=== PATIENT | male | born 1990 | race African-American/Black ===

== ENCOUNTER 2017-09-09 23:17 | Emergency (ER) | payer SELFPAY | END 2017-09-10 01:00 | LOC: ERS 23:17 | DX: M79.89 Other specified soft tissue disorders (principal); I10 Essential (primary) hypertension; F17.210 Nicotine dependence, cigarettes, uncomplicated | CPT/HCPCS: 99406 ==

== ENCOUNTER 2017-11-15 02:23 | Emergency (ER) | payer SELFPAY ==
[2017-11-15] MEDS ORDERED: Haloperidol Lactate 5 MG/ML VIAL ONE (02:27)
[2017-11-15] MEDS ORDERED: diphenhydrAMINE 50 MG/ML VIAL ONE (02:27)
[2017-11-15] MEDS ORDERED: Lorazepam 2 MG/ML VIAL ONE (02:27)
[2017-11-15 03:31] LABS: #Basophils 0.1 thou/uL (0.0-0.2); #Lymphocytes 1.6 thou/uL (1.20-3.40); #Monocytes 0.6 thou/uL (0.11-0.59); #Neutrophils 5.1 thou/uL (1.40-6.50); %Basophils 1.2 % (0.0-1.0); %Eosinophils 0.4 % (0.0-10.0); %Lymphocytes 21.5 % (21.0-51.0); %Monocytes 8.5 % (0.0-10.0); %Neutrophils 68.3 % (42.0-75.0); Hemoglobin 14.4 g/dL (14.0-18.0); Mean Corpuscular HGB CONC 33.6 g/dL (32.0-36.0); Mean Corpuscular Volume 89.3 fl (80.0-94.0); Mean Platelet Volume 7.9 fL (7.4-10.4); Platelet Count 172 thou/uL (130-400); RBC Distribution Width 14.7 % (11.5-14.5); Red Blood Cell (RBC) Count 4.79 mill/uL (4.70-6.10); White Blood Cell (WBC) Count 7.5 thou/uL (4.8-10.8)
[2017-11-15 03:52] LABS: ALT (SGPT) 12 U/L (8-55); AST (SGOT) 26 U/L (5-34); Acetaminophen Less than 6.0 mcg/mL (10.0-30.0); Albumin 4.3 g/dL (3.5-5.0); Alcohol Less than 10 mg/dL (Less than 10); Alkaline Phosphatase 81 U/L (40-150); Anion Gap 15 mmol/L (10-20); BUN (Urea Nitrogen) 7 mg/dL (8.9-20.6); CK (CPK) 384 U/L (30-200); Calc. Creatinine Clearance 0 mL/min (70-130); Carbon Dioxide 24 mmol/L (22-29); Chloride 103 mmol/L (98-107); Estimated GFR-MDRD Greater than 90; Globulin 3.8 g/dL (2.4-3.5); Glucose 103 mg/dL (70-105); Potassium 3.7 mmol/L (3.5-5.1); Protein, Total 8.1 g/dL (6.0-8.3); Salicylate Less than 8.0 mg/dL (15.0-30.0); Sodium 138 mmol/L (136-145)
[2017-11-15 04:50] LABS: Bilirubin Negative (Negative); Blood, Urine Negative (Negative); Clarity CLEAR (Clear); Glucose, Urine (Dipstick) Negative (Negative); Leukocyte Trace (Negative); Nitrite Negative (Negative); Protein, Urine (Dipstick) Negative (Neg-Trace); Specific Gravity, Urine 1.005 (1.002-1.036); Urobilinogen 0.2 mg/dL (0.2-1.0)
[2017-11-15 04:52] LABS: Bacteria/HPF None Seen HPF (None Seen); Hyaline Casts/LPF 0-3 HYALINE CAST LPF (0-3 Hyaline); RBC/HPF None Seen HPF (0-3); Squamous Epithelial None Seen HPF (0-3); WBC/HPF 0-3 HPF (0-3)
[2017-11-15 04:59] LABS: Amphetamine Detected (NotDetected); Barbiturates Screen Not Detected (NotDetected); Benzodiazepine Screen Not Detected (NotDetected); Cocaine Metabolite Screen Not Detected (NotDetected); Medtox Control Line Valid? VALID (VALID); Medtox Reader # READER 4; Methadone Not Detected (NotDetected); Methamphetamine Detected (NotDetected); Opiate Screen Not Detected (NotDetected); Oxycodone Screen Not Detected (NotDetected); Phencyclidine (PCP) Not Detected (NotDetected); THC/Cannabinoid Screen Detected (NotDetected); Tricyclic Screen Not Detected (NotDetected)
== END 2017-11-15 15:55 | disposition home or self-care (01) ==
LOC: ERS 02:23
DX: F19.10 Other psychoactive substance abuse, uncomplicated (principal); F17.210 Nicotine dependence, cigarettes, uncomplicated; I10 Essential (primary) hypertension; Z71.6 Tobacco abuse counseling
CPT/HCPCS: 36415; 80053; 80306; 80307; 81003; 81015; 82550; 84443; 85025; 96372; 99406; J1200; J1630; J2060

== ENCOUNTER 2017-11-23 07:08 | Emergency (ER) | payer SELFPAY ==
[2017-11-23 08:13] LABS: ALT (SGPT) 18 U/L (8-55); AST (SGOT) 27 U/L (5-34); Acetaminophen Less than 6.0 mcg/mL (10.0-30.0); Albumin 4.5 g/dL (3.5-5.0); Alcohol Less than 10 mg/dL (Less than 10); Alkaline Phosphatase 84 U/L (40-150); Anion Gap 16 mmol/L (10-20); BUN (Urea Nitrogen) 9 mg/dL (8.9-20.6); Bilirubin, Total 0.9 mg/dL (0.2-1.2); Calc. Creatinine Clearance 0 mL/min (70-130); Calcium 10.1 mg/dL (7.8-10.44); Carbon Dioxide 23 mmol/L (22-29); Chloride 101 mmol/L (98-107); Estimated GFR-MDRD Greater than 90; Globulin 4.2 g/dL (2.4-3.5); Glucose 95 mg/dL (70-105); Protein, Total 8.7 g/dL (6.0-8.3); Salicylate Less than 8.0 mg/dL (15.0-30.0); Sodium 136 mmol/L (136-145)
[2017-11-23 08:15] LABS: #Lymphocytes 1.5 thou/uL (1.20-3.40); #Monocytes 0.5 thou/uL (0.11-0.59); #Neutrophils 3.8 thou/uL (1.40-6.50); %Basophils 0.5 % (0.0-1.0); %Eosinophils 0.3 % (0.0-10.0); %Neutrophils 65.2 % (42.0-75.0); Hemoglobin 15.9 g/dL (14.0-18.0); Mean Corpuscular HGB CONC 32.6 g/dL (32.0-36.0); Mean Corpuscular Hemoglobin 29.5 pg (27.0-31.0); Mean Corpuscular Volume 90.3 fl (80.0-94.0); Mean Platelet Volume 8.2 fL (7.4-10.4); Platelet Count 162 thou/uL (130-400); RBC Distribution Width 13.9 % (11.5-14.5); Red Blood Cell (RBC) Count 5.38 mill/uL (4.70-6.10); White Blood Cell (WBC) Count 5.9 thou/uL (4.8-10.8)
[2017-11-23 08:16] LABS: PLT Morphology Comment Appears Adequate; RBC Morphology Normal
[2017-11-23] MEDS ORDERED: Cephalexin 250 MG CAP ONE (10:16)
== END 2017-11-23 08:03 | disposition left against medical advice (07) ==
LOC: ERS 07:08
DX: R44.0 Auditory hallucinations (principal); I10 Essential (primary) hypertension; F17.210 Nicotine dependence, cigarettes, uncomplicated; Z79.899 Other long term (current) drug therapy
CPT/HCPCS: 36415; 80053; 80307; 85025; 99285

== ENCOUNTER 2017-11-23 08:13 | Emergency (ER) | payer SELFPAY ==
[2017-11-23 09:18] LABS: Bilirubin Small (Negative); Blood, Urine Negative (Negative); Clarity CLEAR (Clear); Glucose, Urine (Dipstick) Negative (Negative); Leukocyte Moderate (Negative); Nitrite Negative (Negative); Protein, Urine (Dipstick) Trace mg/dL (Neg-Trace); Specific Gravity, Urine 1.024 (1.002-1.036)
[2017-11-23 09:21] LABS: Bacteria/HPF None Seen HPF (None Seen); Pathc Cast-AUWi Flag 0.43 (0-2.49); RBC/HPF 0-3 HPF (0-3); Squamous Epithelial 0-3 HPF (0-3)
[2017-11-23 09:33] LABS: Amphetamine Detected (NotDetected); Barbiturates Screen Not Detected (NotDetected); Benzodiazepine Screen Not Detected (NotDetected); Cocaine Metabolite Screen Detected (NotDetected); Medtox Control Line Valid? VALID (VALID); Medtox Reader # READER 1; Methadone Not Detected (NotDetected); Methamphetamine Detected (NotDetected); Opiate Screen Not Detected (NotDetected); Oxycodone Screen Not Detected (NotDetected); Phencyclidine (PCP) Not Detected (NotDetected); THC/Cannabinoid Screen Detected (NotDetected); Tricyclic Screen Not Detected (NotDetected)
[2017-11-23 09:49] LABS: Renal Epithelial None Seen HPF (0-3); Sperm/HPF Rare HPF (None Seen); Transitional Epithelial NONE SEEN HPF (0-3)
[2017-11-23 09:50] LABS: Hyaline Casts/LPF 0-3 HYALINE CAST LPF (0-3 Hyaline)
[2017-11-23] MEDS ORDERED: Lorazepam 2 MG/ML VIAL ONE (15:29)
[2017-11-24] MEDS ORDERED: risperiDONE 3 MG TAB PO SCH (09:00)
[2017-11-24] MEDS ORDERED: traZODone HCl 50 MG TAB PO SCH (09:00)
[2017-11-24] MEDS ORDERED: Ziprasidone 20 MG VIAL ONE (16:13)
[2017-11-24] MEDS ORDERED: Water For Injection,Sterile 20 ML ONE (16:14)
== END 2017-11-24 17:25 | disposition home or self-care (01) ==
LOC: ERS 08:13
DX: F19.10 Other psychoactive substance abuse, uncomplicated (principal); F29 Unspecified psychosis not due to a substance or known physiological condition; I10 Essential (primary) hypertension; F17.210 Nicotine dependence, cigarettes, uncomplicated; Z79.899 Other long term (current) drug therapy
CPT/HCPCS: 80306; 81003; 81015; 87086; 93005; 96372; 99406; J2060; J3486

== ENCOUNTER 2017-12-20 16:29 | Emergency (ER) | payer SELFPAY ==
[2017-12-20 17:20] LABS: #Basophils 0.1 thou/uL (0.0-0.2); #Lymphocytes 1.9 thou/uL (1.20-3.40); #Monocytes 0.7 thou/uL (0.11-0.59); #Neutrophils 6.6 thou/uL (1.40-6.50); %Basophils 1.1 % (0.0-1.0); %Eosinophils 0.4 % (0.0-10.0); %Lymphocytes 20.4 % (21.0-51.0); %Monocytes 7.4 % (0.0-10.0); %Neutrophils 70.7 % (42.0-75.0); Hemoglobin 15.2 g/dL (14.0-18.0); Mean Corpuscular HGB CONC 33.1 g/dL (32.0-36.0); Mean Corpuscular Hemoglobin 30.2 pg (27.0-31.0); Mean Corpuscular Volume 91.2 fl (80.0-94.0); Mean Platelet Volume 7.8 fL (7.4-10.4); Platelet Count 177 thou/uL (130-400); RBC Distribution Width 13.3 % (11.5-14.5); Red Blood Cell (RBC) Count 5.03 mill/uL (4.70-6.10); White Blood Cell (WBC) Count 9.3 thou/uL (4.8-10.8)
[2017-12-20 17:26] LABS: Bilirubin Negative (Negative); Blood, Urine Negative (Negative); Clarity CLEAR (Clear); Glucose, Urine (Dipstick) Negative (Negative); Leukocyte Moderate (Negative); Nitrite Negative (Negative); Protein, Urine (Dipstick) Negative (Neg-Trace); Specific Gravity, Urine 1.011 (1.002-1.036); Urobilinogen 0.2 mg/dL (0.2-1.0)
[2017-12-20 17:29] LABS: Bacteria/HPF None Seen HPF (None Seen); Hyaline Casts/LPF 0-3 HYALINE CAST LPF (0-3 Hyaline); RBC/HPF None Seen HPF (0-3); Squamous Epithelial 0-3 HPF (0-3)
[2017-12-20 17:35] LABS: Acetaminophen Less than 6.0 mcg/mL (10.0-30.0); Alcohol Less than 10 mg/dL (Less than 10); Salicylate Less than 8.0 mg/dL (15.0-30.0)
[2017-12-20 17:35] LABS: Amphetamine Detected (NotDetected); Barbiturates Screen Not Detected (NotDetected); Benzodiazepine Screen Not Detected (NotDetected); Cocaine Metabolite Screen Not Detected (NotDetected); Medtox Control Line Valid? VALID (VALID); Medtox Reader # READER 1; Methadone Not Detected (NotDetected); Methamphetamine Detected (NotDetected); Opiate Screen Not Detected (NotDetected); Oxycodone Screen Not Detected (NotDetected); Phencyclidine (PCP) Not Detected (NotDetected); THC/Cannabinoid Screen Detected (NotDetected); Tricyclic Screen Not Detected (NotDetected)
[2017-12-20 17:37] LABS: ALT (SGPT) 15 U/L (8-55); AST (SGOT) 24 U/L (5-34); Albumin 4.5 g/dL (3.5-5.0); Alkaline Phosphatase 90 U/L (40-150); Anion Gap 16 mmol/L (10-20); BUN (Urea Nitrogen) 13 mg/dL (8.9-20.6); Bilirubin, Total 0.8 mg/dL (0.2-1.2); CK (CPK) 200 U/L (30-200); Calc. Creatinine Clearance 0 mL/min (70-130); Calcium 9.9 mg/dL (7.8-10.44); Carbon Dioxide 21 mmol/L (22-29); Chloride 104 mmol/L (98-107); Estimated GFR-MDRD Greater than 90; Glucose 77 mg/dL (70-105); Potassium 4.2 mmol/L (3.5-5.1); Protein, Total 8.5 g/dL (6.0-8.3); Sodium 137 mmol/L (136-145)
[2017-12-20] MEDS ORDERED: traZODone HCl 50 MG TAB ONE (18:10)
[2017-12-20] MEDS ORDERED: Ibuprofen 800 MG TAB ONE (18:10)
[2017-12-20] MEDS ORDERED: risperiDONE 1 MG TAB ONE (18:10)
== END 2017-12-20 21:03 | disposition home or self-care (01) ==
LOC: ERS 16:29
DX: F29 Unspecified psychosis not due to a substance or known physiological condition (principal); Z91.14 Patient's other noncompliance with medication regimen; Z71.6 Tobacco abuse counseling; I10 Essential (primary) hypertension; F31.9 Bipolar disorder, unspecified; F17.210 Nicotine dependence, cigarettes, uncomplicated; Z79.899 Other long term (current) drug therapy
CPT/HCPCS: 36415; 80053; 80306; 80307; 81003; 81015; 82550; 84443; 85025; 99406

== ENCOUNTER 2018-01-24 16:39 | Emergency (ER) | payer SELFPAY ==
[2018-01-24] MEDS ORDERED: Ondansetron ODT 4 MG TAB ONE (17:03)
[2018-01-24 17:10] LABS: #Eosinphils 0.1 thou/uL (0.0-0.7); #Lymphocytes 1.6 thou/uL (1.20-3.40); #Monocytes 0.6 thou/uL (0.11-0.59); #Neutrophils 6.1 thou/uL (1.40-6.50); %Basophils 0.6 % (0.0-1.0); %Eosinophils 0.6 % (0.0-10.0); %Lymphocytes 18.8 % (21.0-51.0); %Monocytes 6.7 % (0.0-10.0); %Neutrophils 73.3 % (42.0-75.0); Hemoglobin 14.3 g/dL (14.0-18.0); Mean Corpuscular HGB CONC 33.4 g/dL (32.0-36.0); Mean Corpuscular Volume 89.8 fl (80.0-94.0); Mean Platelet Volume 7.6 fL (7.4-10.4); Platelet Count 171 thou/uL (130-400); Red Blood Cell (RBC) Count 4.75 mill/uL (4.70-6.10); White Blood Cell (WBC) Count 8.3 thou/uL (4.8-10.8)
[2018-01-24] MEDS ORDERED: Morphine 10 MG/ML VIAL ONE (17:14)
[2018-01-24 17:33] LABS: ALT (SGPT) 18 U/L (8-55); AST (SGOT) 33 U/L (5-34); Albumin 4.5 g/dL (3.5-5.0); Alkaline Phosphatase 100 U/L (40-150); Anion Gap 14 mmol/L (10-20); BUN (Urea Nitrogen) 8 mg/dL (8.9-20.6); Calc. Creatinine Clearance 0 mL/min (70-130); Calcium 10.4 mg/dL (7.8-10.44); Carbon Dioxide 24 mmol/L (22-29); Chloride 100 mmol/L (98-107); Estimated GFR-MDRD Greater than 90; Globulin 4.2 g/dL (2.4-3.5); Glucose 80 mg/dL (70-105); Protein, Total 8.7 g/dL (6.0-8.3); Sodium 134 mmol/L (136-145)
--- NOTE | 2018-01-24 17:57 | ULT ---
SCROTAL ULTRASOUND INCLUDING COLOR AND SPECTRAL DOPPLER IMAGIN01/24/18 HISTORY: 27-year-old male with left testicular pain. Right testis measures 4.3 x 2.6 x 2.0 cm. Left testis measures 3.5 x 2.6 x 2.1 cm. The left epididymi s is significantly larger than the right with some heterogeneous hypervascular flow. Right epididymal cyst is 0.7 x 0.9 cm. No intratesticular mass or evidence for testicular torsion. IMPRESSION: Enlarged left epididymis with some heterogeneous increased flow raising concern for epididymitis. Rig ht epididymal head cyst. No intratesticular mass or testicular torsion. POS: [facility]
[2018-01-24 18:08] LABS: Bilirubin Negative (Negative); Blood, Urine Negative (Negative); Clarity CLEAR (Clear); Glucose, Urine (Dipstick) Negative (Negative); Leukocyte Small (Negative); Nitrite Negative (Negative); Protein, Urine (Dipstick) Negative (Neg-Trace); Specific Gravity, Urine 1.009 (1.002-1.036); Urobilinogen 0.2 mg/dL (0.2-1.0)
[2018-01-24 18:10] LABS: Bacteria/HPF None Seen HPF (None Seen); Hyaline Casts/LPF 0-3 HYALINE CAST LPF (0-3 Hyaline); RBC/HPF None Seen HPF (0-3); Squamous Epithelial None Seen HPF (0-3)
[2018-01-24] MEDS ORDERED: cefTRIAXone\\ROCEPHIN 250 MG VIAL ONE (18:33)
[2018-01-24] MEDS ORDERED: Lidocaine 1% PF 5 ML VIAL ONE (18:33)
== END 2018-01-24 19:05 | disposition home or self-care (01) ==
LOC: ERS 16:39
DX: N45.1 Epididymitis (principal); F31.9 Bipolar disorder, unspecified; F17.210 Nicotine dependence, cigarettes, uncomplicated; I10 Essential (primary) hypertension
CPT/HCPCS: 76870; 80053; 81003; 81015; 83605; 85025; 87086; 93976; 96361; 96372; 96374; J0696; J2001; J2270; Q0162

== ENCOUNTER 2018-01-31 19:04 | Emergency (ER) | payer SELFPAY ==
[2018-01-31 20:48] LABS: #Basophils 0.1 thou/uL (0.0-0.2); #Eosinphils 0.1 thou/uL (0.0-0.7); #Lymphocytes 1.6 thou/uL (1.20-3.40); #Monocytes 0.6 thou/uL (0.11-0.59); #Neutrophils 3.5 thou/uL (1.40-6.50); %Basophils 1.1 % (0.0-1.0); %Eosinophils 1.2 % (0.0-10.0); %Lymphocytes 28.2 % (21.0-51.0); %Monocytes 9.5 % (0.0-10.0); Hemoglobin 14.9 g/dL (14.0-18.0); Mean Corpuscular HGB CONC 34.3 g/dL (32.0-36.0); Mean Corpuscular Hemoglobin 30.4 pg (27.0-31.0); Mean Corpuscular Volume 88.5 fl (80.0-94.0); Mean Platelet Volume 7.4 fL (7.4-10.4); Platelet Count 181 thou/uL (130-400); RBC Distribution Width 13.8 % (11.5-14.5); Red Blood Cell (RBC) Count 4.91 mill/uL (4.70-6.10); White Blood Cell (WBC) Count 5.8 thou/uL (4.8-10.8)
[2018-01-31 21:08] LABS: Bilirubin Negative (Negative); Blood, Urine Negative (Negative); Clarity CLEAR (Clear); Glucose, Urine (Dipstick) Negative (Negative); Leukocyte Small (Negative); Nitrite Negative (Negative); Protein, Urine (Dipstick) 100 mg/dL (Neg-Trace); Specific Gravity, Urine 1.028 (1.002-1.036); Urobilinogen 0.2 mg/dL (0.2-1.0)
[2018-01-31 21:10] LABS: Bacteria/HPF None Seen HPF (None Seen); Hyaline Casts/LPF 0-3 HYALINE CAST LPF (0-3 Hyaline); Squamous Epithelial 0-3 HPF (0-3); WBC/HPF 21-50 HPF (0-3)
[2018-01-31 21:10] LABS: Acetaminophen Less than 6.0 mcg/mL (10.0-30.0); Alcohol Less than 10 mg/dL (Less than 10); CK (CPK) 1116 U/L (30-200); Salicylate Less than 8.0 mg/dL (15.0-30.0)
[2018-01-31 21:11] LABS: ALT (SGPT) 14 U/L (8-55); AST (SGOT) 32 U/L (5-34); Albumin 4.2 g/dL (3.5-5.0); Alkaline Phosphatase 98 U/L (40-150); Anion Gap 15 mmol/L (10-20); BUN (Urea Nitrogen) 22 mg/dL (8.9-20.6); Bilirubin, Total 0.7 mg/dL (0.2-1.2); Calc. Creatinine Clearance 0 mL/min (70-130); Calcium 9.3 mg/dL (7.8-10.44); Carbon Dioxide 20 mmol/L (22-29); Chloride 99 mmol/L (98-107); Estimated GFR-MDRD Greater than 90; Globulin 4.1 g/dL (2.4-3.5); Glucose 94 mg/dL (70-105); Protein, Total 8.3 g/dL (6.0-8.3); Sodium 130 mmol/L (136-145)
[2018-01-31 21:21] LABS: Amphetamine Detected (NotDetected); Barbiturates Screen Not Detected (NotDetected); Benzodiazepine Screen Not Detected (NotDetected); Cocaine Metabolite Screen Not Detected (NotDetected); Medtox Control Line Valid? VALID (VALID); Medtox Reader # READER 1; Methadone Not Detected (NotDetected); Methamphetamine Detected (NotDetected); Opiate Screen Not Detected (NotDetected); Oxycodone Screen Not Detected (NotDetected); Phencyclidine (PCP) Not Detected (NotDetected); THC/Cannabinoid Screen Detected (NotDetected); Tricyclic Screen Not Detected (NotDetected)
== END 2018-02-01 13:20 | disposition home or self-care (01) ==
LOC: ERS 19:04
DX: F19.10 Other psychoactive substance abuse, uncomplicated (principal); R44.3 Hallucinations, unspecified; I10 Essential (primary) hypertension; F31.9 Bipolar disorder, unspecified; F17.210 Nicotine dependence, cigarettes, uncomplicated
CPT/HCPCS: 36415; 80053; 80306; 80307; 81003; 81015; 82550; 83605; 84443; 85025; 87086; 96360; 96361

== ENCOUNTER 2018-02-06 03:13 | Emergency (ER) | payer SELFPAY ==
[2018-02-06] MEDS ORDERED: Ketorolac Tromethamine 30 MG/ML VIAL ONE (03:37)
[2018-02-06] MEDS ORDERED: Ondansetron ODT 4 MG TAB ONE (04:16)
[2018-02-06 04:28] LABS: Bilirubin Negative (Negative); Blood, Urine Negative (Negative); Clarity CLEAR (Clear); Glucose, Urine (Dipstick) Negative (Negative); Leukocyte Small (Negative); Nitrite Negative (Negative); Protein, Urine (Dipstick) Negative (Neg-Trace); Specific Gravity, Urine 1.019 (1.002-1.036); pH, Urine 6.5 (5.0-9.0)
[2018-02-06 04:31] LABS: Bacteria/HPF None Seen HPF (None Seen); Hyaline Casts/LPF 0-3 HYALINE CAST LPF (0-3 Hyaline); Pathc Cast-AUWi Flag 0.14 (0-2.49); RBC/HPF None Seen HPF (0-3); Squamous Epithelial 0-3 HPF (0-3)
[2018-02-06 04:48] LABS: #Basophils 0.1 thou/uL (0.0-0.2); #Eosinphils 0.1 thou/uL (0.0-0.7); #Lymphocytes 1.8 thou/uL (1.20-3.40); #Monocytes 0.5 thou/uL (0.11-0.59); #Neutrophils 5.3 thou/uL (1.40-6.50); %Basophils 0.9 % (0.0-1.0); %Eosinophils 0.7 % (0.0-10.0); %Lymphocytes 22.6 % (21.0-51.0); %Monocytes 6.9 % (0.0-10.0); %Neutrophils 68.8 % (42.0-75.0); Hemoglobin 13.8 g/dL (14.0-18.0); Mean Corpuscular HGB CONC 32.7 g/dL (32.0-36.0); Mean Corpuscular Hemoglobin 29.5 pg (27.0-31.0); Mean Corpuscular Volume 90.2 fl (80.0-94.0); Mean Platelet Volume 8.1 fL (7.4-10.4); Platelet Count 187 thou/uL (130-400); RBC Distribution Width 13.7 % (11.5-14.5); Red Blood Cell (RBC) Count 4.68 mill/uL (4.70-6.10); White Blood Cell (WBC) Count 7.8 thou/uL (4.8-10.8)
[2018-02-06 05:01] LABS: ALT (SGPT) 13 U/L (8-55); AST (SGOT) 20 U/L (5-34); Albumin 3.9 g/dL (3.5-5.0); Alkaline Phosphatase 82 U/L (40-150); Anion Gap 12 mmol/L (10-20); BUN (Urea Nitrogen) 9 mg/dL (8.9-20.6); Bilirubin, Total 1.1 mg/dL (0.2-1.2); Calc. Creatinine Clearance 0 mL/min (70-130); Calcium 9.7 mg/dL (7.8-10.44); Carbon Dioxide 27 mmol/L (22-29); Chloride 101 mmol/L (98-107); Estimated GFR-MDRD Greater than 90; Globulin 3.5 g/dL (2.4-3.5); Glucose 118 mg/dL (70-105); Potassium 3.3 mmol/L (3.5-5.1); Protein, Total 7.4 g/dL (6.0-8.3); Sodium 137 mmol/L (136-145)
[2018-02-06] MEDS ORDERED: cefTRIAXone\\ROCEPHIN 250 MG VIAL ONE (05:16)
--- NOTE | 2018-02-06 08:57 | ULT ---
PRELIMINARY REPORT/[facility]/EMERGENTY AFTER-HOURS PROCEDURE US Scrotum US Duplex Arterial/Venous of the Testicles, Complete CLINICAL HISTORY: 27 years old, male; Pain and signs and symptoms; Edema; Scrotum pain; Patient HX: Left testicle pain x 1 week TECHNIQUE: Real-time ultrasound of the scrotum with image documentation. Real-time duplex ultrasound scan of the arterial and venous flow of the scrotal contents with color Doppler flow and spectral waveform analysis. COMPARISON: No relevant prior studies available. FINDINGS: Scrotal ultrasound was performed. Duplex ultrasound scan with color Doppler flow and spectral wavefor m analysis was also performed for evaluation of testicular blood flow and to rule out torsion. Right testicle: No acute findings. No testicular mass. Normal blood flow. No evidence of torsion. Left testicle: No acute findings. No testicular mass. Normal blood flow. No evidence of torsion. Epididymides: Enlarged and heterogeneous body and tail of the left epididymis with increased vascular ity, likely related to epididymitis. Questionable mass noted by the wader boot top assembler on the ultrasound wor ksheet, probably represents the abnormal epididymis; however recommend clinical correlation and followup ultrasound. Small 9mm right epididymal cyst. Scrotum: Small left hydrocele. IMPRESSION: Findings are likely related to left epididymis. Questionable mass noted by the wader boot top assembler probably r epresents the abnormal epididymis, however recommend clinical correlation and followup ultrasound. Al so recommend comparison with the recent prior ultrasound, which is not available for my review. No testicular mass or torsion. Thank you for allowing us to participate in the care of your patient. Dictated and Authenticated by: Carter Zapata MD 02/06/2018 5:03 AM Central Time ([place] & [place]) FINAL REPORT SCROTAL SONOGRAM WITH DUPLEX EVALUATION: DATE: 02/06/18. TIME: Performed on an emergency basis at 0342 hours. HISTORY: Scrotal pain. FINDINGS: Agree with the preliminary report by Dr. Zapata from [facility]. Good color and spectral Doppl er flow within the testicles. Left epididymis remains in enlarged with the appearance of epididymiti s. Findings are similar to the previous exam from 01/24/18. POS: [facility]
[2018-02-09 19:47] LABS: Chlamydia by PCR Not Detected (NotDetected); GC by PCR Not Detected (NotDetected)
== END 2018-02-06 05:45 | disposition home or self-care (01) ==
LOC: ERS 03:13
DX: N45.1 Epididymitis (principal); N43.3 Hydrocele, unspecified; I10 Essential (primary) hypertension; F31.9 Bipolar disorder, unspecified; F17.210 Nicotine dependence, cigarettes, uncomplicated
CPT/HCPCS: 76870; 80053; 81003; 81015; 83605; 85025; 87491; 87591; 93976; 96374; 96375; J0696; J1885; J2270; Q0162

== ENCOUNTER 2018-02-09 09:55 | Emergency (ER) | payer SELFPAY ==
[2018-02-09] MEDS ORDERED: HYDROcodone/Acetaminophen 5/325 mg Tablet ONE (11:59)
[2018-02-09 12:06] LABS: Bilirubin Negative (Negative); Blood, Urine Negative (Negative); Clarity TURBID (Clear); Glucose, Urine (Dipstick) Negative (Negative); Leukocyte Moderate (Negative); Nitrite Negative (Negative); Protein, Urine (Dipstick) Trace mg/dL (Neg-Trace); Specific Gravity, Urine 1.025 (1.002-1.036)
[2018-02-09 12:08] LABS: Bacteria/HPF None Seen HPF (None Seen); Pathc Cast-AUWi Flag 1.01 (0-2.49); RBC/HPF 0-3 HPF (0-3); Squamous Epithelial 0-3 HPF (0-3); WBC/HPF 21-50 HPF (0-3)
[2018-02-09 12:10] LABS: Hyaline Casts/LPF 0-3 HYALINE CAST LPF (0-3 Hyaline); Renal Epithelial None Seen HPF (0-3); Transitional Epithelial NONE SEEN HPF (0-3)
--- NOTE | 2018-02-09 13:32 | ULT ---
TESTICULAR ULTRASOUND: Date: 02/09/18 HISTORY: Left-sided testicular pain. FINDINGS: Real-time imaging of the right and left testes performed. The right testicle measures 3.8 cm and the left measures 3.2 cm in size. There is a 6.0 mm right epididymal cyst. The left epididymis appears slightly enlarged. DOPPLER EVALUATION WITH SPECTRAL ANALYSIS: Normal flow shown to both testes. Suggestion of some hyperemia associated with the left epididymis. IMPRESSION: Findings suggesting left-sided epididymitis. POS: [facility]
== END 2018-02-09 13:27 | disposition left against medical advice (07) ==
LOC: ERS 09:55
DX: N45.1 Epididymitis (principal); I10 Essential (primary) hypertension; F31.9 Bipolar disorder, unspecified; F17.210 Nicotine dependence, cigarettes, uncomplicated; F30.9 Manic episode, unspecified; F29 Unspecified psychosis not due to a substance or known physiological condition
CPT/HCPCS: 76870; 81003; 81015; 87086; 93976

== ENCOUNTER 2018-03-31 22:20 | Emergency (ER) | payer SELFPAY ==
[2018-03-31 22:46] LABS: Hemoglobin 15.6 g/dL (14.0-18.0); Mean Corpuscular HGB CONC 33.9 g/dL (32.0-36.0); Mean Corpuscular Hemoglobin 30.7 pg (27.0-31.0); Mean Corpuscular Volume 90.5 fL (78.0-98.0); Mean Platelet Volume 7.9 fL (7.4-10.4); Platelet Count 169 thou/uL (130-400); RBC Distribution Width 12.8 % (11.5-14.5); Red Blood Cell (RBC) Count 5.08 mill/uL (4.70-6.10)
[2018-03-31 22:58] LABS: Eosinophils 1 % (0-10); Lymphocytes 34 % (21-51); MDiff Complete? YES; Monocytes 5 % (0-10); Neutrophil 59 % (42-75)
[2018-03-31 23:02] LABS: ALT (SGPT) 16 U/L (8-55); AST (SGOT) 32 U/L (5-34); Albumin 4.7 g/dL (3.5-5.0); Alkaline Phosphatase 91 U/L (40-150); Anion Gap 20 mmol/L (10-20); BUN (Urea Nitrogen) 20 mg/dL (8.9-20.6); Bilirubin, Total 1.4 mg/dL (0.2-1.2); Calc. Creatinine Clearance 0 mL/min (70-130); Calcium 10.4 mg/dL (7.8-10.44); Carbon Dioxide 18 mmol/L (22-29); Chloride 105 mmol/L (98-107); Estimated GFR-MDRD 80; Globulin 4.1 g/dL (2.4-3.5); Glucose 88 mg/dL (70-105); Potassium 3.6 mmol/L (3.5-5.1); Protein, Total 8.8 g/dL (6.0-8.3); Sodium 139 mmol/L (136-145)
[2018-03-31 23:04] LABS: Acetaminophen Less than 6.0 mcg/mL (10.0-30.0); Alcohol Less than 10 mg/dL (Less than 10); Salicylate Less than 8.0 mg/dL (15.0-30.0)
[2018-04-01 01:43] LABS: Bilirubin Negative (Negative); Blood, Urine Negative (Negative); Clarity CLEAR (Clear); Glucose, Urine (Dipstick) Negative (Negative); Leukocyte Small (Negative); Nitrite Negative (Negative); Protein, Urine (Dipstick) 30 mg/dL (Neg-Trace); Specific Gravity, Urine 1.036 (1.002-1.036); pH, Urine 5.5 (5.0-9.0)
[2018-04-01 01:45] LABS: Bacteria/HPF None Seen HPF (None Seen); Pathc Cast-AUWi Flag 0.72 (0-2.49); RBC/HPF 0-3 HPF (0-3)
[2018-04-01 01:53] LABS: Amphetamine Detected (NotDetected); Barbiturates Screen Not Detected (NotDetected); Benzodiazepine Screen Not Detected (NotDetected); Cocaine Metabolite Screen Detected (NotDetected); Medtox Control Line Valid? VALID (VALID); Medtox Reader # READER 4; Methadone Not Detected (NotDetected); Methamphetamine Detected (NotDetected); Opiate Screen Not Detected (NotDetected); Oxycodone Screen Not Detected (NotDetected); Phencyclidine (PCP) Detected (NotDetected); THC/Cannabinoid Screen Detected (NotDetected); Tricyclic Screen Not Detected (NotDetected)
[2018-04-01 01:56] LABS: Hyaline Casts/LPF 0-3 HYALINE CAST LPF (0-3 Hyaline); Renal Epithelial None Seen HPF (0-3); Transitional Epithelial 0-3 HPF (0-3)
== END 2018-04-01 11:39 | disposition home or self-care (01) ==
LOC: ERS 22:20
DX: F16.10 Hallucinogen abuse, uncomplicated (principal); F14.10 Cocaine abuse, uncomplicated; F12.10 Cannabis abuse, uncomplicated; F31.9 Bipolar disorder, unspecified; I10 Essential (primary) hypertension; F17.210 Nicotine dependence, cigarettes, uncomplicated; Z71.6 Tobacco abuse counseling
CPT/HCPCS: 51701; 80053; 80306; 80307; 81003; 81015; 82550; 84443; 85025; 87491; 87591; 93005; 94760; 96361; 96365; 96375; 99406

== ENCOUNTER 2018-04-02 18:14 | Emergency (ER) | payer SELFPAY | END 2018-04-02 20:20 | disposition home or self-care (01) | LOC: ERS 18:14 | DX: R44.0 Auditory hallucinations (principal); I10 Essential (primary) hypertension; F31.9 Bipolar disorder, unspecified; F17.210 Nicotine dependence, cigarettes, uncomplicated | CPT/HCPCS: 93005 ==

== ENCOUNTER 2020-01-13 17:21 | Inpatient (IN) | payer SELFPAY ==
[2020-01-13] MEDS: Propofol 1,000 MG/100 ML VIAL IV PRN ×2 (19:35→23:04)
[2020-01-13] MEDS ORDERED: CCU Electrolyte Replacement 1 EACH IVPB SCH (19:38)
[2020-01-13] MEDS ORDERED: Propofol BOLUS 1,000 MG/100 ML VIAL IV PRN (19:45)
[2020-01-13] MEDS ORDERED: Fentanyl BOLUS 250 ML IVPB PRN (19:45)
[2020-01-13] MEDS ORDERED: Ventilator Sedation Protocol 1 EACH FS SCH (19:45)
[2020-01-13] MEDS ORDERED: DISCONTINUE PREVIOUS NARCOTIC PAIN MEDICATIONS AND BENZODIAZEPINES FS SCH (19:45)
[2020-01-13] MEDS ORDERED: Morphine 2 MG/ML SYRINGE SLOW IVP PRN (19:45)
[2020-01-13] MEDS ORDERED: Lorazepam 2 MG/ML VIAL SLOW IVP PRN (19:45)
[2020-01-13] MEDS ORDERED: fentaNYL Citrate/PF 2,000 MCG in Sodium Chloride 0.9% 60 ML IV SCH (19:45)
[2020-01-13] MEDS ORDERED: Magnesium 2 GM/50 ML 2 GM in Premix Bag 1 BAG IVPB PRN (19:50)
[2020-01-13] MEDS ORDERED: Potassium Phosphate 12 MMOL in Sodium Chloride 0.9% 250 ML 250 ML IV PRN (19:50)
[2020-01-13] MEDS ORDERED: PHOS-NAK 1 PKT PACK PO PRN ×2 (19:50)
[2020-01-13] MEDS ORDERED: Potassium Phosphate 15 MMOL in Sodium Chloride 0.9% 250 ML 250 ML IV PRN (19:50)
[2020-01-13] MEDS ORDERED: Magnesium Oxide 400 MG TAB PO PRN ×2 (19:50)
[2020-01-13] MEDS ORDERED: Potassium Chloride 40 MEQ in Sodium Chloride 0.9% 250 ML 250 ML IVPB PRN (19:50)
[2020-01-13] MEDS ORDERED: Potassium Chloride 40 MEQ in Premix Bag 1 BAG IVPB PRN (19:50)
[2020-01-13] MEDS ORDERED: Potassium Chloride 20 MEQ TAB PO PRN (19:50)
[2020-01-13] MEDS ORDERED: CCU ELECTROLYTE REPLACEMENT PROTOCOL FS PRN (19:50)
[2020-01-13] MEDS ORDERED: Potassium Phosphate 9 MMOL in Sodium Chloride 0.9% 100 ML IVPB PRN (19:50)
[2020-01-13] MEDS: Sodium Chloride 0.9% 1,000 ML IV SCH (20:03)
[2020-01-13 20:33] LABS: Actual Bicarbonate (HCO3a) 24.4 mEq/L (22-28); Base Excess (BEa) 0.9 mEq/L (-2.0 to +3.0); CO2 Tension 35.2 mmHg (35.0-45.0); Calcium, Ionized 1.22 mmol/L (1.12-1.30); Carboxyhemoglobin (COHb) 0.9 gm% (0.0-3.0); Hemoglobin (Hb) 14.2 g/dL (14.0-18.0); O2 Tension (PaO2), arterial 151.2 mmHg (80.0-100.0); Potassium - ABG Lab 3.67 mmol/L (3.70-5.30); pH, Arterial 7.46 (7.35-7.45)
[2020-01-13 20:35] LABS: Puncture Site RR
[2020-01-13] MEDS: Lorazepam 2 MG/ML VIAL SLOW IVP PRN (23:04)
--- NOTE | 2020-01-14 04:26 | HP ---
HISTORY OF PRESENT ILLNESS: This is a 29-year-old male patient, who was transferred to our unit from another facility. He was in the ER and was very combative, homicidal and suicidal. The patient is known to have history of multiple psychiatric disorder and his urine tox screen was positive for many substances since he was very belligerent. He did receive ketamine, Haldol, Geodon, but no effect. He was intubated for behavior control and airway protection. The patient is currently in our unit and is intubated and sedated. He has an OG tube that is connected to intermittent suction and it is producing brownish material with possible blood mixed in. PAST MEDICAL HISTORY: Unable to obtain because he is sedated. PAST SURGICAL HISTORY: Unable to obtain. REVIEW OF SYSTEMS: Unable to perform. FAMILY HISTORY: Unable to obtain. ALLERGIES: UNABLE TO OBTAIN. PHYSICAL EXAMINATION: GENERAL: He is intubated, sedated, does not appear in distress. VITAL SIGNS: His blood pressure is 129/90, his heart rate 61, saturating 100%. HEENT: Head is nontraumatic, normocephalic. NECK: Supple. No adenopathy. No murmur. Thyroid is not palpable. Trachea is midline. No supraclavicular adenopathy. HEART: S1, S2 regular. No murmur. No gallop. No friction rubs. No displacement of PMI. LUNGS: Clear to auscultation bilaterally. No wheezes, no rhonchi, no crackles. Bowel sounds are positive. Nontender abdomen. No hepatosplenomegaly. EXTREMITIES: No lower extremity edema. No cyanosis. NEUROLOGICAL: Unable to perform. He is sedated. LABORATORY DATA: Blood work shows WBC of 5.3, hemoglobin of 13.2, platelets of 237. Urine tox screen positive for cannabinoids cocaine, methamphetamine. Salicylate level in the blood less than 2.8. Sodium 136, potassium 3.4. Alcohol level less than 3. Tylenol level less than 2. Most recent ABG shows pH of 7.46, pCO2 of 35.2. ASSESSMENT AND PLAN: 1. This is a 29-year-old male patient, who is presenting with agitation with multisubstance abuse. He was intubated. Currently, he is our unit, sedated, ventilated. His OG tube is producing brownish material, possibly mixed with some blood. We are in the process of obtaining an occult blood on these materials and checking his blood work again and typing and screening him in case this is representing a GI bleed. We will start him on IV Protonix twice a day just in case if there is a drop in his hemoglobin. Might consider Protonix drip and consult Gastroenterology if that is depending on the upcoming results. 2. For deep vein thrombosis prophylaxis, he will be on SCDs. One hour of critical care time was spent to manage this patient. Job ID: [id number]
[2020-01-14] MEDS: Propofol 1,000 MG/100 ML VIAL IV PRN ×3 (04:27→14:28)
[2020-01-14 04:30] LABS: Band 1 % (5-11); Hemoglobin 13.9 g/dL (14.0-18.0); Lymphocytes 31 % (21-51); MDiff Complete? YES; Mean Corpuscular HGB CONC 32.1 g/dL (32.0-36.0); Mean Corpuscular Hemoglobin 29.6 pg (27.0-31.0); Mean Corpuscular Volume 92.4 fL (78.0-98.0); Mean Platelet Volume 8.6 fL (7.4-10.4); Monocytes 4 % (0-10); Neutrophil 64 % (42-75); Platelet Count 186 thou/uL (130-400); Platelet Morphology Comment Appears Adequate; RBC Distribution Width 13.2 % (11.5-14.5); RBC Morphology Normal; Red Blood Cell (RBC) Count 4.69 mill/uL (4.70-6.10); White Blood Cell (WBC) Count 6.7 thou/uL (4.8-10.8)
[2020-01-14 04:35] LABS: ALT (SGPT) 15 U/L (8-55); AST (SGOT) 35 U/L (5-34); Albumin 3.9 g/dL (3.5-5.0); Alkaline Phosphatase 71 U/L (40-110); Anion Gap 13 mmol/L (10-20); BUN (Urea Nitrogen) 7 mg/dL (8.9-20.6); Bilirubin, Total 1.3 mg/dL (0.2-1.2); Calc. Creatinine Clearance 123 mL/min (70-130); Calcium 9.2 mg/dL (7.8-10.44); Carbon Dioxide 24 mmol/L (22-29); Chloride 107 mmol/L (98-107); Estimated GFR-MDRD Greater than 90; Globulin 3.4 g/dL (2.4-3.5); Glucose 78 mg/dL (70-105); Potassium 3.9 mmol/L (3.5-5.1); Protein, Total 7.3 g/dL (6.0-8.3); Sodium 140 mmol/L (136-145)
[2020-01-14 07:26] LABS: Actual Bicarbonate (HCO3a) 25.7 mEq/L (22-28); Base Excess (BEa) 2.7 mEq/L (-2.0 to +3.0); CO2 Tension 34.6 mmHg (35.0-45.0); Carboxyhemoglobin (COHb) 0.7 gm% (0.0-3.0); Hemoglobin (Hb) 13.6 g/dL (14.0-18.0); O2 Tension (PaO2), arterial 142.5 mmHg (80.0-100.0); Potassium - ABG Lab 3.46 mmol/L (3.70-5.30); Puncture Site RB; pH, Arterial 7.49 (7.35-7.45)
[2020-01-14] MEDS: Pantoprazole 40 MG VIAL IVP SCH ×2 (10:05→21:01)
[2020-01-14] MEDS: Sodium Chloride 0.9% 1,000 ML IV SCH ×2 (10:05→22:02)
[2020-01-14 13:01] LABS: #Eosinphils 0.1 thou/uL (0.0-0.7); #Lymphocytes 1.2 thou/uL (1.20-3.40); #Monocytes 0.7 thou/uL (0.11-0.59); %Basophils 0.3 % (0.0-1.0); %Neutrophils 59.8 % (42.0-75.0); Hemoglobin 13.2 g/dL (14.0-18.0); Mean Corpuscular HGB CONC 31.1 g/dL (32.0-36.0); Mean Corpuscular Hemoglobin 28.9 pg (27.0-31.0); Mean Corpuscular Volume 92.7 fL (78.0-98.0); Mean Platelet Volume 8.5 fL (7.4-10.4); Platelet Count 191 thou/uL (130-400); RBC Distribution Width 13.3 % (11.5-14.5); Red Blood Cell (RBC) Count 4.56 mill/uL (4.70-6.10); White Blood Cell (WBC) Count 5.1 thou/uL (4.8-10.8)
[2020-01-14] MEDS: Haloperidol Lactate 5 MG/ML VIAL SLOW IVP SCH ×3 (15:11→21:01)
[2020-01-14] MEDS ORDERED: Haloperidol Lactate 5 MG/ML VIAL ONE (16:56)
[2020-01-14] MEDS: Lorazepam 2 MG/ML VIAL SLOW IVP PRN (21:21)
[2020-01-15] MEDS: Haloperidol Lactate 5 MG/ML VIAL SLOW IVP SCH ×4 (00:19→12:04)
--- NOTE | 2020-01-15 05:47 | CON ---
DATE OF CONSULTATION: HISTORY OF PRESENT ILLNESS: Ke Perez is a 29-year-old bipolar schizophrenic patient. History is obtained as outlined. He is hallucinating, hearing voices back and forth. I am not really so sure what transpired, but he was intubated and transferred from [facility] yesterday evening. I have been notified about his consult at about 3 o'clock this afternoon. He is still on the vent. He apparently had a history of drinking in the past. He smokes, has a history of substance abuse. His toxicology screen revealed that he had in the past PCP, amphetamine, methamphetamine, cannabinoids and opiates. His drug screen that was obtained last night, we do not have the actual results. There are no family members here to give any additional information. Admitting doctor hospitalist accepted the patient on transfer with multi-positive drug abuse. Did receive Haldol, Geodon, ketamine and was intubated. Unclear where he was intubated either [facility] or [facility]. He is now on the vent. No additional information is obtained at this time. I was trying to review his old medical records. He has actually never been admitted to the hospital. He has been to the ER numerous times. In spite of looking at the ER notes, there is nothing specific that has come up in the notes, i.e., past medical history pertinent for hypertension, bipolar disorders, substance abuse, alcohol abuse, previous surgeries unknown, cardiac medication unknown. PHYSICAL EXAMINATION: VITAL SIGNS: Pulse 78, blood pressure , respiratory rate 18, pulse 80, saturations 100%. CHEST: No wheezing, crackles. CARDIAC: Normal S1, S2. No gallops. ABDOMEN: No masses. LABORATORY DATA: White count 5000. Lytes are normal. PO2 is 142, pCO2 49, 30%, rate of 14. Chest x-ray is clear. Thyroid function normal. IMPRESSION: 1. Metabolic encephalopathy. 2. Bipolar disorder. 3. History of substance abuse, tobacco abuse, alcohol abuse. PLAN: Try and withhold sedation, schedule Haldol. Supportive care. We will wean and extubate if he remains calm, not agitated. This is a 45-minute critical care note. Job ID: [id number]
[2020-01-15 06:39] LABS: ALT (SGPT) 11 U/L (8-55); AST (SGOT) 29 U/L (5-34); Albumin 3.5 g/dL (3.5-5.0); Alkaline Phosphatase 70 U/L (40-110); Anion Gap 14 mmol/L (10-20); BUN (Urea Nitrogen) 11 mg/dL (8.9-20.6); Bilirubin, Total 2.1 mg/dL (0.2-1.2); Calc. Creatinine Clearance 108 mL/min (70-130); Calcium 8.8 mg/dL (7.8-10.44); Carbon Dioxide 22 mmol/L (22-29); Chloride 106 mmol/L (98-107); Estimated GFR-MDRD Greater than 90; Globulin 3.2 g/dL (2.4-3.5); Glucose 65 mg/dL (70-105); Potassium 4.1 mmol/L (3.5-5.1); Protein, Total 6.7 g/dL (6.0-8.3); Sodium 138 mmol/L (136-145)
[2020-01-15] MEDS: Pantoprazole 40 MG VIAL IVP SCH ×2 (08:14→22:36)
[2020-01-15] MEDS ORDERED: Haloperidol Lactate 5 MG/ML VIAL SLOW IVP PRN (09:29)
--- NOTE | 2020-01-15 10:12 | PRG ---
DATE OF SERVICE: 01/15/2020 SUBJECTIVE: Ke Perez is a 29-year-old gentleman, bipolar schizophrenic disorder, was intubated for major agitation. He was transferred here on the vent. He was extubated yesterday, doing well. OBJECTIVE: VITAL SIGNS: His temperature 98, pulse 116, saturations are 98% on room air, blood pressure 120/66. CHEST: No wheezing or crackles. CARDIAC: Normal S1 and S2. NEUROLOGIC: He is awake, alert, and responsive. LABORATORY DATA: Unremarkable. IMPRESSION: Bipolar schizophrenic disorder. PLAN: 1. He appears to be much improved. Somewhat lethargic this morning. He is making his Haldol. Ativan p.r.n. He needs counseling. [facility] consult. Eventually, placement. 2. He has no pulmonary issues. Pulmonary will follow at a distance. Call if needed. Job ID: [id number]
[2020-01-15] MEDS: Sodium Chloride 0.9% 1,000 ML IV SCH ×2 (12:05→13:18)
[2020-01-15 14:59] VITALS: BMI 20.1
--- NOTE | 2020-01-15 18:11 | PDOC.HOSPP ---
- Subjective Encounter Date: 01/15/20 Subjective: Somnulent this morning. - Objective Vital Signs & Weight: Vital Signs (12 hours) Temp Pulse Resp BP BP Pulse Ox 01/15/20 10:56 98.9 F 77 16 127/69 97 01/15/20 08:00 97 01/15/20 07:13 98.6 F 72 16 120/66 98 Weight Admit Weight 140 lb Weight 136 lb 8 oz Most Recent Monitor Data Heart Rate from ECG 69 NIBP 118/79 NIBP BP-Mean 92 Respiration from ECG 18 SpO2 100 I&O: 01/14/20 01/15/20 01/16/20 06:59 06:59 06:59 Intake Total 931 1145.8 400 Output Total 1405 953 Balance -474 192.8 400 Result Diagrams: 01/14/20 12:47 01/15/20 05:56 Additional Labs: Accuchecks 01/15/20 08:34 POC Glucose 70 Hospitalist ROS - Medication Medications: Active Medications Generic Name Dose Route Start Last Admin Trade Name Chase PRN Reason Stop Dose Admin Sodium Chloride 1,000 mls @ 75 mls/hr 01/13/20 20:00 01/15/20 13:18 Normal Saline 0.9% IV 1,000 mls .[id number] MINI Administration Lorazepam 2 mg 01/13/20 19:44 01/14/20 21:21 Ativan SLOW IVP 2 mg Q6H PRN Administration Anxiety/Agitation Pantoprazole Sodium 40 mg 01/14/20 09:00 01/15/20 08:14 Protonix IVP 40 mg Q12HR MINI Administration - Exam ENT: normocephalic atraumatic Neck: supple, no JVD Respiratory: normal chest expansion, no tachypnea Gastrointestinal: soft, non-tender, non-distended Extremities: no cyanosis Neurological: cranial nerve grossly intact, no focal deficits Hosp A/P (1) PCP (phencyclidine) abuse Code(s): F16.10 - HALLUCINOGEN ABUSE, UNCOMPLICATED Status: Acute (2) Bipolar disorder Code(s): F31.9 - BIPOLAR DISORDER, UNSPECIFIED Status: Acute - Plan The patient was extubated yesterday. Appears to be sedated at this time after receiving Haldol and lorazepam. Remains in restraints. Once the patient is able to wake up and hold a conversation, he can be evaluated by [facility] for discharge. He appears to be medically stable at this time.
[2020-01-15] MEDS ORDERED: Acetaminophen 325 MG TAB PO PRN (20:09)
[2020-01-16] MEDS: Sodium Chloride 0.9% 1,000 ML IV SCH ×2 (04:19→14:54)
[2020-01-16 06:34] LABS: #Eosinphils 0.1 thou/uL (0.0-0.7); #Lymphocytes 1.6 thou/uL (1.20-3.40); #Monocytes 0.5 thou/uL (0.11-0.59); #Neutrophils 2.5 thou/uL (1.40-6.50); %Basophils 0.8 % (0.0-1.0); %Eosinophils 3.1 % (0.0-10.0); %Lymphocytes 33.1 % (21.0-51.0); %Monocytes 10.2 % (0.0-10.0); %Neutrophils 52.7 % (42.0-75.0); ALT (SGPT) 9 U/L (8-55); AST (SGOT) 20 U/L (5-34); Albumin 3.2 g/dL (3.5-5.0); Alkaline Phosphatase 66 U/L (40-110); Anion Gap 10 mmol/L (10-20); BUN (Urea Nitrogen) 9 mg/dL (8.9-20.6); Bilirubin, Total 0.9 mg/dL (0.2-1.2); Calc. Creatinine Clearance 128 mL/min (70-130); Calcium 8.3 mg/dL (7.8-10.44); Carbon Dioxide 25 mmol/L (22-29); Chloride 108 mmol/L (98-107); Estimated GFR-MDRD Greater than 90; Globulin 2.8 g/dL (2.4-3.5); Glucose 94 mg/dL (70-105); Hemoglobin 12.5 g/dL (14.0-18.0); Mean Corpuscular HGB CONC 31.8 g/dL (32.0-36.0); Mean Corpuscular Hemoglobin 29.6 pg (27.0-31.0); Mean Platelet Volume 8.3 fL (7.4-10.4); Platelet Count 184 thou/uL (130-400); RBC Distribution Width 13.1 % (11.5-14.5); Red Blood Cell (RBC) Count 4.23 mill/uL (4.70-6.10); Sodium 139 mmol/L (136-145); White Blood Cell (WBC) Count 4.7 thou/uL (4.8-10.8)
[2020-01-16 07:20] LABS: Bacteria/HPF None Seen HPF (None Seen); Bilirubin Negative (Negative); Blood, Urine Trace (Negative); Clarity Clear (Clear); Glucose, Urine (Dipstick) Normal (Negative); Leukocyte Negative Leu/uL (Negative); Nitrite Negative (Negative); Protein, Urine (Dipstick) Negative (Neg-Trace); RBC/HPF 0-3 HPF (0-3); Squamous Epithelial None Seen HPF (0-3); Urobilinogen Normal mg/dL (Less than 2); WBC/HPF 0-3 HPF (0-3)
[2020-01-16 07:38] VITALS: BP 130/90; TEMP 96.9
[2020-01-16] MEDS: Pantoprazole 40 MG VIAL IVP SCH (07:50)
--- NOTE | 2020-01-16 21:08 | DIS ---
DATE OF ADMISSION: 01/13/2020 DATE OF DISCHARGE: 01/16/2020 DISCHARGE DIAGNOSES: 1. Acute toxic metabolic encephalopathy secondary to polysubstance abuse. 2. Polysubstance abuse including PCP, cannabis, cocaine, and methamphetamines. 3. Bipolar disorder/schizophrenia. 4. Acute hypoxic respiratory failure. CONSULTATIONS: Dr. Caraballo with Pulmonology/Critical Care Service, [facility] Service. PERTINENT LABORATORY AND X-RAY FINDINGS: Basic metabolic profile within normal limits. Total bilirubin ranged between 0.9 to 2.1. TSH 3.80. CBC showed a hemoglobin ranged between 12.5 to 13.9. Gastric occult blood 01/14/2020, positive. Portable chest x-ray dated 01/13/2020, showed no acute process. Endotracheal tube in appropriate positioning. HOSPITAL COURSE: The patient was admitted to the Critical Care Unit after initially presenting with paranoid delusion with combativeness and agitation in the context of polysubstance abuse including PCP, cannabis, cocaine, and methamphetamines. The patient was placed in 4-point restraints and given multiple sedating medications including Geodon, hydroxyzine, Ativan, ketamine, and rocuronium. The patient was intubated prophylactically for sedation control and transferred to the Critical Care Unit. The patient was subsequently extubated within 24 hours, maintaining oxygen saturations greater than 90% on room air. The patient clinically stabilized in regard to the paranoia and combativeness and was transferred to the medical floor, undergoing evaluation by the [facility] Service. The patient was deemed an appropriate candidate for inpatient psychiatric evaluation and has been accepted to [facility] on 01/16/2020. The patient medically stable at the time of transfer with stable vital signs. I have examined the patient at the time of discharge and discussed followup instructions. The patient ready for transfer to [facility] on 01/16/2020. DISCHARGE MEDICATIONS: None. FOLLOWUP: The patient will follow up with Dr. Galeas at [facility], [place], [place], on 01/16/2020. CONDITION ON DISCHARGE: Stable. ACTIVITY: Ad-veronica. DIET: Regular. CODE STATUS: Full. DISPOSITION: Transfer to [facility], [place], [place], on 01/16/2020. TIME SPENT: Total time preparing and coordinating discharge, 35 minutes. Job ID: [id number]
== END 2020-01-16 16:01 | disposition short-term general hospital (02) | DRG 917 ==
LOC: CCU 19:32 → T4-B 01-15 03:30
PROVIDERS: ADMIT Internal Medicine; ATTEND Internal Medicine
PROC: 0BH17EZ Insertion of Endotracheal Airway into Trachea, Via Natural or Artificial Opening (ICD-10-PCS; principal; 2020-01-13)
PROC: 5A1935Z Respiratory Ventilation, Less than 24 Consecutive Hours (ICD-10-PCS; 2020-01-13)
DX: T40.991A Poisoning by other psychodysleptics [hallucinogens], accidental (unintentional), initial encounter (principal); G92 Toxic encephalopathy; J96.01 Acute respiratory failure with hypoxia; F16.10 Hallucinogen abuse, uncomplicated; F12.10 Cannabis abuse, uncomplicated; F14.10 Cocaine abuse, uncomplicated; F15.10 Other stimulant abuse, uncomplicated; T40.7X1A Poisoning by cannabis (derivatives), accidental (unintentional), initial encounter; T40.5X1A Poisoning by cocaine, accidental (unintentional), initial encounter; T43.621A Poisoning by amphetamines, accidental (unintentional), initial encounter; F25.0 Schizoaffective disorder, bipolar type; F22 Delusional disorders; Z78.1 Physical restraint status
CPT/HCPCS: 36415; 36416; 80053; 81001; 82271; 82805; 84443; 85025; 86850; 86900; 86901; 94002; 94003; C9113; J1630; J2060; J2704; J3010; J3490

== ENCOUNTER 2020-01-21 21:26 | Emergency (ER) | payer SELFPAY ==
[2020-01-21] MEDS ORDERED: Ziprasidone 20 MG CAP ONE (21:56)
== END 2020-01-21 22:01 | disposition home or self-care (01) ==
LOC: ERS 21:26
DX: Z76.5 Malingerer [conscious simulation] (principal); Z59.0 Homelessness; I10 Essential (primary) hypertension; F17.210 Nicotine dependence, cigarettes, uncomplicated; F31.9 Bipolar disorder, unspecified; Z79.899 Other long term (current) drug therapy

== ENCOUNTER 2020-01-22 00:11 | Emergency (ER) | payer SELFPAY ==
[2020-01-22 01:22] LABS: #Basophils 0.1 thou/uL (0.0-0.2); #Eosinphils 0.1 thou/uL (0.0-0.7); #Lymphocytes 2.1 thou/uL (1.20-3.40); #Monocytes 0.9 thou/uL (0.11-0.59); #Neutrophils 5.4 thou/uL (1.40-6.50); %Basophils 1.2 % (0.0-1.0); %Eosinophils 0.6 % (0.0-10.0); %Lymphocytes 24.9 % (21.0-51.0); %Monocytes 10.3 % (0.0-10.0)
[2020-01-22 01:23] LABS: Hemoglobin 14.1 g/dL (14.0-18.0); Mean Corpuscular HGB CONC 32.9 g/dL (32.0-36.0); Mean Corpuscular Hemoglobin 30.3 pg (27.0-31.0); Mean Corpuscular Volume 91.9 fL (78.0-98.0); Mean Platelet Volume 8.1 fL (7.4-10.4); Platelet Count 219 thou/uL (130-400); RBC Distribution Width 13.2 % (11.5-14.5); Red Blood Cell (RBC) Count 4.65 mill/uL (4.70-6.10); White Blood Cell (WBC) Count 7.9 thou/uL (4.8-10.8)
[2020-01-22 01:25] LABS: Amphetamine Detected (NotDetected); Barbiturates Screen Not Detected (NotDetected); Benzodiazepine Screen Not Detected (NotDetected); Cocaine Metabolite Screen Detected (NotDetected); Medtox Control Line Valid? VALID (VALID); Medtox Reader # READER 4; Methadone Not Detected (NotDetected); Methamphetamine Detected (NotDetected); Opiate Screen Not Detected (NotDetected); Oxycodone Screen Not Detected (NotDetected); Phencyclidine (PCP) Detected (NotDetected); THC/Cannabinoid Screen Not Detected (NotDetected); Tricyclic Screen Not Detected (NotDetected)
[2020-01-22 01:35] LABS: ALT (SGPT) 30 U/L (8-55); AST (SGOT) 55 U/L (5-34); Acetaminophen Less than 6.0 mcg/mL (10.0-30.0); Albumin 4.7 g/dL (3.5-5.0); Alcohol Less than 10 mg/dL (Less than 10); Alkaline Phosphatase 75 U/L (40-110); Anion Gap 17 mmol/L (10-20); BUN (Urea Nitrogen) 7 mg/dL (8.9-20.6); Bilirubin, Total 1.2 mg/dL (0.2-1.2); Calc. Creatinine Clearance 0 mL/min (70-130); Calcium 10.4 mg/dL (7.8-10.44); Carbon Dioxide 26 mmol/L (22-29); Chloride 99 mmol/L (98-107); Estimated GFR-MDRD Greater than 90; Globulin 4.1 g/dL (2.4-3.5); Glucose 73 mg/dL (70-105); Potassium 3.8 mmol/L (3.5-5.1); Protein, Total 8.8 g/dL (6.0-8.3); Salicylate Less than 8.0 mg/dL (15.0-30.0); Sodium 138 mmol/L (136-145)
[2020-01-22] MEDS ORDERED: Acetaminophen 500 MG TAB ONE (04:12)
[2020-01-22] MEDS ORDERED: Ziprasidone 20 MG CAP ONE ×2 (07:20→11:43)
[2020-01-22] MEDS ORDERED: Ziprasidone 20 MG CAP PO SCH (08:00)
[2020-01-22] MEDS ORDERED: Lorazepam 1 MG TAB ONE (12:57)
== END 2020-01-22 13:38 ==
LOC: ERS 00:11
DX: R45.851 Suicidal ideations (principal); R44.3 Hallucinations, unspecified; R45.6 Violent behavior; R45.1 Restlessness and agitation; I10 Essential (primary) hypertension; F31.9 Bipolar disorder, unspecified; F41.9 Anxiety disorder, unspecified; F17.210 Nicotine dependence, cigarettes, uncomplicated; Z79.899 Other long term (current) drug therapy
CPT/HCPCS: 80053; 80306; 80307; 84443; 85025; 93005